=== PATIENT | female | born 1960 | race American Indian/Alaskan Native ===

== ENCOUNTER 2016-11-29 13:39 | Emergency (ER) | payer MEDICARE ==
--- NOTE | 2016-11-29 16:18 | Emergency Department Report ---
HPI - General Chief Complaint: Fall Time Seen by Provider: 11/29/16 15:51 - HPI HPI: 55-year-old female presents today with right hip pain 1 month. Patient states that she slipped and fell one month ago landing on her right hip. Patient was seen at [facility], [place] but no x-ray was taken. Patient was diagnosed with sciatica and UTI. She was given muscle relaxer and antibiotics and states it did not relieve her symptoms. The pain worsened 2 days ago. Positive for nausea. Denies numbness, weakness, paresthesias. Denies bowel or bladder incontinence. Denies fever, chills, no chest pain, shortness of breath, abdominal pain. ED Past Medical Hx - Past Medical History Previous Medical History?: Yes Hx Hypertension: Yes (10YRS takes, lisinopril, amylodipine, carvidolol) Hx Heart Attack/AMI: No Hx Congestive Heart Failure: No Hx Diabetes: No Hx Asthma: No Hx COPD: No Hx HIV: No - Surgical History Past Surgical History?: Yes Additional Surgical History: hysterectomy, spinal fusion 2013 - Social History Smoking Status: Never Smoker Substance Use Type: Alcohol, Prescribed - Medications Home Medications: Home Medications Medication Instructions Recorded Confirmed Last Taken Type Carvedilol [Coreg] 25 mg PO BID 12/04/13 07/17/16 07/16/16 History Cyclobenzaprine HCl [Flexeril 5 MG 10 mg PO BID 12/04/13 07/17/16 07/17/16 History TAB] HYDROcodone/APAP 5-325 [Cisco 1 each PO TID PRN 12/04/13 07/17/16 12/23/13 History 5-325 mg TAB] Lisinopril/Hydrochlorothiazide 20 - 25 mg PO DAILY 12/04/13 07/17/16 07/16/16 History [Zestoretic 20-12.5 mg] amLODIPine [Norvasc] 10 mg PO DAILY 12/04/13 07/17/16 07/16/16 History FLUoxetine [PROzac] 20 mg PO QDAY 07/17/16 07/17/16 Unknown History Gabapentin [Neurontin] 600 mg PO BID 07/17/16 07/17/16 07/17/16 History Ibuprofen [Motrin 800 MG tab] 800 mg PO Q8HR PRN 07/17/16 07/17/16 Unknown History Loratadine 10 mg PO DAILY 07/17/16 07/17/16 07/16/16 History Omeprazole Magnesium [PriLOSEC Otc] 20 mg PO QDAY 07/17/16 07/17/16 07/16/16 History Methocarbamol [Robaxin TAB] 750 mg PO BID #14 tab 11/29/16 Unknown Rx Naproxen [Naprosyn] 500 mg PO BID #30 tablet 11/29/16 Unknown Rx ED Review of Systems ROS: Stated complaint: FALL/RT HIP PAIN Other details as noted in HPI Constitutional: denies: chills, fever, malaise Eyes: denies: eye pain ENT: denies: ear pain, throat pain, congestion Respiratory: denies: cough, shortness of breath, wheezing Cardiovascular: denies: chest pain, palpitations Endocrine: no symptoms reported Gastrointestinal: nausea. denies: abdominal pain, vomiting Musculoskeletal: back pain, arthralgia Neurological: denies: headache, weakness, numbness, paresthesias Physical Exam - Physical Exam Vital Signs: Vital Signs 11/29/16 14:19 Temperature 98.3 F Pulse Rate 102 H Respiratory 20 Rate Blood Pressure 192/103 O2 Sat by Pulse 97 Oximetry Physical Exam: GENERAL: The patient is well-developed and well-nourished. Patient is in NAD. HEAD: Normocephalic. Atraumatic. CHEST/LUNGS: Clear to auscultation throughout. HEART/CARDIOVASCULAR: Regular rate and rhythm. No murmurs, rubs or gallops. ABDOMEN: Abdomen is soft, nontender. No guarding or rebound tenderness. EXTREMITIES: Full range of motion. Peripheral pulses intact. Capillary refill less than 2 seconds. BACK: Full ROM. No midline tenderness. Right-sided lower back tenderness to palpation. No tenderness to palpation of sciatic notch bilaterally. Negative straight leg raise bilaterally. NEURO: Alert and oriented x 3. Normal gait. ED Course Vital Signs 11/29/16 14:19 Temperature 98.3 F Pulse Rate 102 H Respiratory 20 Rate Blood Pressure 192/103 O2 Sat by Pulse 97 Oximetry ED Medical Decision Making - Lab Data Vital Signs 11/29/16 11/29/16 14:19 19:04 Temperature 98.3 F Pulse Rate 102 H 92 H Respiratory 20 18 Rate Blood Pressure 192/103 Blood Pressure 170/88 [Right] O2 Sat by Pulse 97 99 Oximetry - Radiology Data Radiology results: report reviewed EXAM: XR HIPS BILAT 2V W/PELVIS HISTORY: Right hip pain post fall TECHNIQUE: Bilateral hips and AP pelvis PRIORS: None. FINDINGS: No fracture identified. No dislocation seen. Femoral heads maintain a normal contour. Joint spaces within normal limits. Adjacent bony pelvis is unremarkable. Fusion hardware noted lower lumbar spine IMPRESSION: Fusion hardware noted lower lumbar spine Otherwise study within - Medical Decision Making 55-year-old female presents today with right-sided hip and lower back pain. Her x-ray results reveal no fracture or dislocation. Patient is in no acute distress at this time. She will be discharged home and is encouraged to follow up with a primary care provider. She has been provided with a referral for orthopedic. She will be sent home on Robaxin and naproxen and is encouraged to return to the emergency room for any worsening symptoms. Critical care attestation.: If time is entered above; I have spent that time in minutes in the direct care of this critically ill patient, excluding procedure time. ED Disposition Clinical Impression: Lumbar back pain Qualifiers: Chronicity: acute Back pain laterality: right Sciatica presence: without sciatica Qualified Code(s): M54.5 - Low back pain Disposition: DISCHARGED TO HOME OR SELFCARE Is pt being admited?: No Does the pt Need Aspirin: No Condition: Stable Instructions: Chronic Back Pain (ED) Additional Instructions: Follow-up with primary care provider. Return to the emergency department if symptoms worsen. Prescriptions: Naproxen [Naprosyn] 500 mg PO BID #30 tablet Methocarbamol [Robaxin TAB] 750 mg PO BID #14 tab Referrals: AG CALABRESE MD [Primary Care Provider] - 3-5 Days ZAINA JURADO MD [Staff Physician] - 3-5 Days [facility] [Outside] - 3-5 Days Forms: Work/School Release Form(ED) Time of Disposition: 18:49
--- NOTE | 2016-11-29 18:17 | XRay Report ---
FINAL REPORT EXAM: XR HIPS BILAT 2V W/PELVIS HISTORY: Right hip pain post fall TECHNIQUE: Bilateral hips and AP pelvis PRIORS: None. FINDINGS: No fracture identified. No dislocation seen. Femoral heads maintain a normal contour. Joint spaces within normal limits. Adjacent bony pelvis is unremarkable. Fusion hardware noted lower lumbar spine IMPRESSION: Fusion hardware noted lower lumbar spine Otherwise study within
[2016-11-29] MEDS ORDERED: VALIUM PO ONE (18:37)
[2016-11-29] MEDS ORDERED: TORADOL IM ONE (18:37)
[2016-11-29 19:05] VITALS: BP 170/88
== END 2016-11-29 19:15 | disposition home or self-care (01) ==
LOC: ED 13:39
DX: M54.5 Low back pain (principal); I10 Essential (primary) hypertension
CPT/HCPCS: 73521; 96372; 99283; J1885

== ENCOUNTER 2018-06-06 23:30 | Emergency (ER) | payer MEDICARE ==
[2018-06-06 23:53] VITALS: BP 132/68
[2018-06-07] MEDS ORDERED: MOTRIN PO ONE (00:29)
--- NOTE | 2018-06-07 02:08 | XRay Report ---
FINAL REPORT EXAM: XR WRIST 2V RT HISTORY: right wrist pain TECHNIQUE: AP and lateral views of the right wrist were submitted. FINDINGS: There is no evidence of fracture or soft tissue injury. The navicular appears intact. IMPRESSION: No acute findings. If there is a history recent trauma and persistent wrist pain, repeat imaging is recommended 7-10 days to evaluate for occult fracture.
--- NOTE | 2018-06-07 02:09 | XRay Report ---
FINAL REPORT EXAM: XR SPINE CERVICAL 2-3V HISTORY: neck pain TECHNIQUE: Four views of the cervical spine were submitted. FINDINGS: There is severe narrowing of the C3-C4, C4-C5, C5-C6 and C6-C7 disc. There is mild narrowing of the C2-C3 disc. The alignment appears normal. There is no evidence of fracture. The pre vertebral soft tissues and C1-C2 articulation otherwise appear intact. IMPRESSION: Extensive multilevel disc degeneration as described. No acute findings.
--- NOTE | 2018-06-07 02:12 | XRay Report ---
FINAL REPORT EXAM: XR SPINE LUMBOSACRAL 2-3V HISTORY: lower back pain TECHNIQUE: AP and lateral views lumbar spine were submitted. There are no previous studies available for comparison. FINDINGS: There is a dextroscoliosis of the lumbar spine. There has been previous fusion at the L2-3 and L3-4 levels with hardware in place. There is a chronic compression fracture of the inferior endplate of L1. There is multilevel disc degeneration throughout the lower thoracic and lumbar spine. There is a neurostimulator device overlying the lower thoracic spine with leads directed into the upper lumbar spine. The soft tissues otherwise are unremarkable. IMPRESSION: Extensive multilevel disc degeneration with fusion and laminectomies at the L2-3 and L3-4 levels as described. Chronic compression fracture of L1. No definite acute fracture identified.
--- NOTE | 2018-06-07 02:13 | XRay Report ---
FINAL REPORT EXAM: XR PELVIS 1-2V HISTORY: pain/hips TECHNIQUE: An AP view of the pelvis was obtained. FINDINGS: The bony pelvic ring appears intact. The hip and SI joints appear normal. There are degenerative changes and postsurgical changes in the lower lumbar spine. The soft tissues are unremarkable. IMPRESSION: No acute process in the pelvis. Postsurgical and arthritic changes in the lower lumbar spine.
--- NOTE | 2018-06-07 02:13 | XRay Report ---
FINAL REPORT EXAM: XR HAND 2V LT HISTORY: Left thumb pain TECHNIQUE: AP and lateral views of the left hand were submitted. FINDINGS: There are arthritic changes of the greater multangular 1st metacarpal joint in the wrist. There is no evidence of fracture. The metacarpal phalangeal joints appear intact. The interphalangeal joints appear intact also. The soft tissues otherwise well maintained. IMPRESSION: Arthritic changes of the greater multangular 1st metacarpal joint. No acute injury.
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
== END 2018-06-07 03:08 | disposition home or self-care (01) ==
LOC: ED 23:30
DX: S63.622A Sprain of interphalangeal joint of left thumb, initial encounter (principal); M25.531 Pain in right wrist; G89.29 Other chronic pain; M54.6 Pain in thoracic spine; M25.552 Pain in left hip; M25.551 Pain in right hip; I10 Essential (primary) hypertension; K21.9 Gastro-esophageal reflux disease without esophagitis; Z90.710 Acquired absence of both cervix and uterus; Z91.018 Allergy to other foods; Y09 Assault by unspecified means; Y93.89 Activity, other specified; Y92.89 Other specified places as the place of occurrence of the external cause; Y99.8 Other external cause status
CPT/HCPCS: 72040; 72100; 72170; 99283

== ENCOUNTER 2020-03-14 18:08 | Emergency (ER) | payer MEDICARE ==
--- NOTE | 2020-03-14 19:57 | Emergency Department Report ---
HPI - General Chief Complaint: Allergic Reaction PUI?: No Time Seen by Provider: 03/14/20 19:42 - HPI HPI: Patient is a 59-year-old female with a past medical history of hypertension controlled with medication who presents the ED complaining of feeling some tightness in her throat x2 days. Patient states her symptoms got worse today. Patient states that she thinks she is having an allergic reaction. Patient states she is allergic to peanut and is unsure if she has had exposure to peanut, patient states she been taking Benadryl and Claritin for the past 2 days. She denies any rash or swelling. She denies fever chills nausea vomiting or pain in the throat. ED Past Medical Hx - Past Medical History Previous Medical History?: Yes Hx Hypertension: Yes (10YRS takes, lisinopril, amylodipine, carvidolol) Hx Heart Attack/AMI: No Hx Congestive Heart Failure: No Hx Diabetes: No Hx GERD: Yes Hx Asthma: No Hx COPD: No Hx HIV: No - Surgical History Additional Surgical History: hysterectomy, Lumbar spinal fusion 2013 - Social History Smoking Status: Never Smoker Substance Use Type: None - Medications Home Medications: Home Medications Medication Instructions Recorded Confirmed Last Taken Type Cyclobenzaprine HCl [Flexeril 5 MG 10 mg PO BID 12/04/13 07/17/16 07/17/16 History TAB] HYDROcodone/APAP 5-325 [[place] 1 each PO TID PRN 12/04/13 07/17/16 12/23/13 History 5-325 mg TAB] Lisinopril/Hydrochlorothiazide 20 - 25 mg PO DAILY 12/04/13 07/17/16 07/16/16 History [Zestoretic 20-12.5 mg] amLODIPine 10 mg PO DAILY 12/04/13 07/17/16 07/16/16 History carvediloL [Coreg] 25 mg PO BID 12/04/13 07/17/16 07/16/16 History FLUoxetine [PROzac] 20 mg PO QDAY 07/17/16 07/17/16 Unknown History Gabapentin 600 mg PO BID 07/17/16 07/17/16 07/17/16 History Loratadine 10 mg PO DAILY 07/17/16 07/17/16 07/16/16 History Omeprazole Magnesium [PriLOSEC Otc] 20 mg PO QDAY 07/17/16 07/17/16 07/16/16 History Naproxen [Naprosyn] 500 mg PO BID #30 tablet 11/29/16 Unknown Rx methOCARBAMOL [Robaxin TAB] 750 mg PO BID #14 tab 11/29/16 Unknown Rx Ibuprofen [Motrin 800 MG tab] 800 mg PO Q8HR PRN #15 tablet 06/07/18 Unknown Rx predniSONE [Deltasone] 50 mg PO QDAY #4 tab 03/14/20 Unknown Rx ED Review of Systems ROS: Stated complaint: ALLERGIC REACTIONS Other details as noted in HPI Comment: All other systems reviewed and negative Physical Exam - Physical Exam Vital Signs: Vital Signs 03/14/20 18:14 Temperature 97.9 F Pulse Rate 68 Respiratory 20 Rate Blood Pressure 180/80 O2 Sat by Pulse 97 Oximetry General: GENERAL: Alert and oriented x3, no apparent distress, Normal Gait, atraumatic. EARS: symetrical, atraumatic, non tender, ear canal clear and moderate cerumen, tympanic membrance non inflamed. gross auditory nml bilaterally. NOSE: Nose symetrical, Nontender,Nares appeared normal. MOUTH:Mouth is well hydrated and without lesions. Tonsils nonerythematous, mildly swollen, Uvula midline, Tongue not elevated. Mucous membranes are moist. Posterior pharynx clear, no exudate or lesions. Patent airways. NECK: Supple. Non edematous, No carotid bruits. No lymphadenopathy or thyromegaly. No C-spine tenderness LUNGS: Symetrical with respiration, No wheezing, no rales or crackles, CTAB. HEART: S1, S2 present, regular rate and rhythm without murmur, no rubs, no gallops. Non tender to palpation ABDOMEN: No organomegaly was noted,Positive bowel sounds, soft, and non-diste nded. . Nontender to palpation on all Quadrants, NO CVA tenderness. SKIN: Warm and dry, No lesions, No ulceration or induration present. ED Course Vital Signs 03/14/20 18:14 Temperature 97.9 F Pulse Rate 68 Respiratory 20 Rate Blood Pressure 180/80 O2 Sat by Pulse 97 Oximetry ED Medical Decision Making - Medical Decision Making This 59-year-old female presents with throat discomfort most likely secondary to an allergic reaction. Patient received Decadron in the ED. Patient is not experiencing any worsening of symptoms or having difficulty swallowing. Discussed with parent patient to continue taking Benadryl as she has been taking. Discussed short course prednisone to help with inflammation and allergic reaction. Discussed follow-up with the primary care physician in 2 to 3 days. Patient is in no respiratory distress Critical care attestation.: If time is entered above; I have spent that time in minutes in the direct care of this critically ill patient, excluding procedure time. ED Disposition Clinical Impression: Allergic reaction, Lymphadenopathy Disposition: TO HOME OR SELFCARE Is pt being admited?: No Does the pt Need Aspirin: No Condition: Stable Instructions: Anaphylaxis (ED), Food Allergy (ED), Allergic Esophagitis (ED) Additional Instructions: Make sure to follow up with the primary care physician as discussed. Take all your medications as you've been prescribed. Continue taking Benadryl or loratadine as you have If you have any worsening symptoms or develop new symptoms please return to ED immediately. Prescriptions: predniSONE [Deltasone] 50 mg PO QDAY #4 tab Referrals: PRIMARY CARE, [Primary Care Provider] - 3-[address] [facility] [Outside] - 3-5 Days [facility] [place]Outside] - 3-5 Days Forms: Work/School Release Form(ED) Time of Disposition: 20:37
[2020-03-14] MEDS ORDERED: dexAMETHasone 20 MG/5 ML VIAL IM ONE (20:07)
[2020-03-15 13:35] VITALS: BP 180/80
== END 2020-03-14 21:05 | disposition home or self-care (01) ==
LOC: ED 18:08
DX: T78.1XXA Other adverse food reactions, not elsewhere classified, initial encounter (principal); R59.1 Generalized enlarged lymph nodes; I10 Essential (primary) hypertension; K21.9 Gastro-esophageal reflux disease without esophagitis; Z90.710 Acquired absence of both cervix and uterus; Z98.890 Other specified postprocedural states; Z91.048 Other nonmedicinal substance allergy status; Z79.899 Other long term (current) drug therapy; X58.XXXA Exposure to other specified factors, initial encounter
CPT/HCPCS: 96372; 99281; J1100

== ENCOUNTER 2022-06-18 08:42 | Emergency (ER) | payer MEDICARE ==
--- NOTE | 2022-06-18 09:46 | XRay Report ---
CHEST 2 VIEWS INDICATION / CLINICAL INFORMATION: Dyspnea. COMPARISON: 01/22/2019 FINDINGS: SUPPORT DEVICES: None. HEART / MEDIASTINUM: No significant abnormality. LUNGS / PLEURA: No significant pulmonary or pleural abnormality. No pneumothorax. ADDITIONAL FINDINGS: Stable chronic right lateral rib deformities. There is ectatic situated kyphosis of the spine with posterior lumbar fusion changes. IMPRESSION: 1. No acute findings. Signer Name: Rod King Jr, MD Signed: 06/18/2022 9:42 AM Workstation Name: [id number]
[2022-06-18] MEDS ORDERED: ALBUTEROL 2.5 MG/3 ML NEBU IH ONE (09:50)
[2022-06-18] MEDS ORDERED: SODIUM CHLORIDE 0.9% 500 ML 500 ML IV ONE (09:50)
[2022-06-18] MEDS ORDERED: IPRATROPIUM 0.02% NEBU 2.5 ML IH ONE (09:50)
[2022-06-18] MEDS ORDERED: methylPREDNISolone Sod Succinate 125 MG/2 ML INJ IV ONE (09:50)
[2022-06-18 10:27] LABS: Basophils # (Auto) 0.1 K/mm3 (0.0-0.1); Basophils % (Auto) 0.7 % (0.0-1.8); Eosinophils # (Auto) 0.3 K/mm3 (0.0-0.4); Eosinophils % (Auto) 3.9 % (0.0-4.3); Hematocrit 37.6 % (30.3-42.9); Hemoglobin 12.2 gm/dl (10.1-14.3); Lymphocytes # (Auto) 3.3 K/mm3 (1.2-5.4); Lymphocytes % (Auto) 41.8 % (13.4-35.0); Mean Corpuscular HGB Conc 32 % (30-34); Mean Corpuscular Volume 95 fl (79-97); Monocytes # (Auto) 0.8 K/mm3 (0.0-0.8); Monocytes % (Auto) 10.5 % (0.0-7.3); Platelet Count 246 K/mm3 (140-440); Red Blood Count 3.96 M/mm3 (3.65-5.03); Red Cell Distribution Width 13.4 % (13.2-15.2)
[2022-06-18 10:41] LABS: INR 0.95 (0.87-1.13)
[2022-06-18 10:46] LABS: Creatine Kinase MB 2.4 ng/mL (0.0-4.0)
[2022-06-18 10:50] LABS: Alanine Aminotransferase 11 units/L (7-56); Albumin 3.6 g/dL (3.9-5); BUN/Creatinine Ratio 21; Blood Urea Nitrogen 21 mg/dL (7-17); Hemolysis Index 25
--- NOTE | 2022-06-18 11:06 | Emergency Department Report ---
ED General Adult HPI - General Chief complaint: Dyspnea/Respdistress Stated complaint: COUGHING/WHEEZING/HARD TO BREATHE PUI?: No Time Seen by Provider: 06/18/22 09:49 Source: patient Mode of arrival: Ambulatory Limitations: No Limitations - History of Present Illness Initial comments: sob and coughing since saturday. had negative covd test on saturday but has had no improvements -: Gradual Location: chest Radiation: non-radiation Severity scale (0 -10): 0 Improves with: none Worsens with: none Associated Symptoms: cough. denies: chest pain Treatments Prior to Arrival: none - Related Data Home Medications Medication Instructions Recorded Confirmed Last Taken Cyclobenzaprine HCl [Flexeril 5 MG 10 mg PO BID 12/04/13 07/17/16 07/17/16 TAB] HYDROcodone/APAP 5-325 [[place] 1 each PO TID PRN 12/04/13 07/17/16 12/23/13 5-325 mg TAB] Lisinopril/Hydrochlorothiazide 20 - 25 mg PO DAILY 12/04/13 07/17/16 07/16/16 [Zestoretic 20-12.5 mg] amLODIPine 10 mg PO DAILY 12/04/13 07/17/16 07/16/16 carvediloL [Coreg] 25 mg PO BID 12/04/13 07/17/16 07/16/16 FLUoxetine [PROzac] 20 mg PO QDAY 07/17/16 07/17/16 Unknown Gabapentin 600 mg PO BID 07/17/16 07/17/16 07/17/16 Loratadine 10 mg PO DAILY 07/17/16 07/17/16 07/16/16 Omeprazole Magnesium [PriLOSEC Otc] 20 mg PO QDAY 07/17/16 07/17/16 07/16/16 Previous Rx's Medication Instructions Recorded Last Taken Type Naproxen [Naprosyn] 500 mg PO BID #30 tablet 11/29/16 Unknown Rx methOCARBAMOL [Robaxin TAB] 750 mg PO BID #14 tab 11/29/16 Unknown Rx Ibuprofen [Motrin 800 MG tab] 800 mg PO Q8HR PRN #15 tablet 06/07/18 Unknown Rx predniSONE [Deltasone] 50 mg PO QDAY #4 tab 03/14/20 Unknown Rx Allergies Allergy/AdvReac Type Severity Reaction Status Date / Time shellfish derived Allergy Angioedema Verified 06/18/22 08:56 PEANUT OIL Allergy Angioedema Uncoded 06/18/22 08:56 ED Review of Systems ROS: Stated complaint: COUGHING/WHEEZING/HARD TO BREATHE Other details as noted in HPI Constitutional: denies: chills, fever Eyes: denies: eye pain, eye discharge, vision change ENT: denies: ear pain, throat pain Respiratory: denies: cough, shortness of breath, wheezing Cardiovascular: denies: chest pain, palpitations Endocrine: no symptoms reported Gastrointestinal: denies: abdominal pain, nausea, diarrhea Genitourinary: denies: urgency, dysuria, discharge Musculoskeletal: denies: back pain, joint swelling, arthralgia Skin: denies: rash, lesions Neurological: denies: headache, weakness, paresthesias Psychiatric: denies: anxiety, depression Hematological/Lymphatic: denies: easy bleeding, easy bruising ED Past Medical Hx - Past Medical History Hx Hypertension: Yes (10YRS takes, lisinopril, amylodipine, carvidolol) Hx Heart Attack/AMI: No Hx Congestive Heart Failure: No Hx Diabetes: No Hx GERD: Yes Hx Asthma: No Hx COPD: No Hx HIV: No - Surgical History Additional Surgical History: hysterectomy, Lumbar spinal fusion 2013, breast reduction - Social History Smoking Status: Never Smoker - Medications Home Medications: Home Medications Medication Instructions Recorded Confirmed Last Taken Type Cyclobenzaprine HCl [Flexeril 5 MG 10 mg PO BID 12/04/13 07/17/16 07/17/16 History TAB] HYDROcodone/APAP 5-325 [[place] 1 each PO TID PRN 12/04/13 07/17/16 12/23/13 History 5-325 mg TAB] Lisinopril/Hydrochlorothiazide 20 - 25 mg PO DAILY 12/04/13 07/17/16 07/16/16 History [Zestoretic 20-12.5 mg] amLODIPine 10 mg PO DAILY 12/04/13 07/17/16 07/16/16 History carvediloL [Coreg] 25 mg PO BID 12/04/13 07/17/16 07/16/16 History FLUoxetine [PROzac] 20 mg PO QDAY 07/17/16 07/17/16 Unknown History Gabapentin 600 mg PO BID 0907/17/16 07/17/16 History Loratadine 10 mg PO DAILY 07/17/16 07/17/16 07/16/16 History Omeprazole Magnesium [PriLOSEC Otc] 20 mg PO QDAY 07/17/16 07/17/16 07/16/16 History Naproxen [Naprosyn] 500 mg PO BID #30 tablet 11/29/16 Unknown Rx methOCARBAMOL [Robaxin TAB] 750 mg PO BID #14 tab 11/29/16 Unknown Rx Ibuprofen [Motrin 800 MG tab] 800 mg PO Q8HR PRN #15 tablet 06/07/18 Unknown Rx predniSONE [Deltasone] 50 mg PO QDAY #4 tab 03/14/20 Unknown Rx ED Physical Exam - General Limitations: No Limitations General appearance: alert, in no apparent distress - Head Head exam: Present: atraumatic, normocephalic - Eye Eye exam: Present: normal appearance - ENT ENT exam: Present: mucous membranes moist - Neck Neck exam: Present: normal inspection - Respiratory Respiratory exam: Present: normal lung sounds bilaterally. Absent: respiratory distress - Cardiovascular Cardiovascular Exam: Present: regular rate, normal rhythm. Absent: systolic murmur, diastolic murmur, rubs, gallop - GI/Abdominal GI/Abdominal exam: Present: soft, normal bowel sounds - Extremities Exam Extremities exam: Present: normal inspection - Back Exam Back exam: Present: normal inspection - Neurological Exam Neurological exam: Present: alert, oriented X3 - Psychiatric Psychiatric exam: Present: normal affect, normal mood - Skin Skin exam: Present: warm, dry, intact, normal color. Absent: rash ED Course Vital Signs 06/18/22 06/18/22 08:54 10:34 Temperature 97.8 F Pulse Rate 67 Respiratory 20 Rate Blood Pressure 148/85 [Right] O2 Sat by Pulse 98 100 Oximetry ED Medical Decision Making - Lab Data Result diagrams: 06/18/22 Unknown 06/18/22 Unknown - EKG Data -: EKG Interpreted by Me EKG shows normal: sinus rhythm Rate: bradycardia - Radiology Data Radiology results: report reviewed, image reviewed - Medical Decision Making work up showed negative x ray bnp and trop, vss no distress , Critical care attestation.: If time is entered above; I have spent that time in minutes in the direct care of this critically ill patient, excluding procedure time. ED Disposition Clinical Impression: Cough, Bronchitis Disposition: 01 HOME / SELF CARE / HOMELESS Is pt being admited?: No Does the pt Need Aspirin: No Condition: Stable Instructions: Chronic Bronchitis (ED), Upper Respiratory Infection, Adult, [id number], Cough, Adult
[2022-06-18 11:32] VITALS: BP 146/59
--- NOTE | 2022-06-18 16:53 | Electrocardiograph Report ---
[facility] Test Date: 2022-06-18 Test Time: 09:52:42 Pat Name: EDI MUÑOZ Department: Room: Gender: F Integration Architect: PEARL : 1960 Requested By: MALENA SABA Order Number: [id number] Reading MD: Smith Lucas Measurements Intervals [place] Rate: 54 P: 61 ME: 137 QRS: 33 QRSD: 97 T: 84 QT: 412 QTc: 391 Interpretive Statements Sinus bradycardia Nonspecific T abnormalities, lateral leads No previous ECG available for comparison Electronically Signed On 06-18-2022 16:52:43 EDT by Smith Lucas
== END 2022-06-18 11:35 | disposition home or self-care (01) ==
LOC: ED 08:42
DX: R05.9 Cough, unspecified (principal); J40 Bronchitis, not specified as acute or chronic; I10 Essential (primary) hypertension; Z91.013 Allergy to seafood; Z91.010 Allergy to peanuts
CPT/HCPCS: 36415; 71046; 80053; 82550; 82553; 83690; 83880; 84484; 85025; 85610; 93005; 94640; 96361; 96374; 99284; J2930; J7040